=== PATIENT | female | born 2000 | race Caucasian/White ===

== ENCOUNTER 2021-05-15 16:01 | Inpatient (IN) ==
--- NOTE | 2021-05-15 16:36 | Emergency Department Note ---
History of Present Illness General Chief complaint: Ankle Pain Stated complaint: fracture Time Seen by Provider: 05/15/21 16:11 History of Present Illness Maximum Pain Intensity: 6 This is a 20-year-old female who presents via EMS with a right ankle injury that occurred prior to arrival. She was walking down steps in a parking garage and slipped on a wet step, fell forward injuring the right ankle. She received morphine for pain control in route. She has been unable to bear weight. Patient also endorses some left outer ankle pain, but not nearly as bad as the right ankle. Denies any prior injuries or surgeries to either ankles. States that she is not sexually active and no chance of . Denies any numbness or tingling in her feet. Did not hit her head when she fell. Denies any headache, loss of consciousness, neck pain, back pain, upper extremity pain, chest pain, abdominal pain, nausea, vomiting, pelvic pain. Home Medications Medication Instructions Recorded Confirmed Type ibuprofen 200 mg tablet (Advil) 400 mg PO Q6H PRN 05/15/21 05/15/21 History magnesium 500 mg tablet 500 mg PO DAILY 05/15/21 05/15/21 History norelgestromin 150 mcg-e.estradiol 1 patch TOPICAL WK 05/15/21 05/15/21 History 35 mcg/24 hr weekly transderm patch (Xulane) venlafaxine 150 mg 159 mg PO HS 05/15/21 05/15/21 History capsule,extended release 24 hr Allergies Allergy/AdvReac Type Severity Reaction Status Date / Time latex Allergy Rash Verified 05/15/21 19:38 DUST MITES Allergy SINUS Uncoded 05/15/21 19:38 CONGESTION Past Med/Surg History Medical History Chronic migraine Social History Smoking Status: Never smoker Feels Safe at Home: Yes Review of Systems Constitutional: no fever, no chills and no weakness Eyes: no diplopia Ear, Nose, Mouth, Throat: no loose teeth Respiratory: no dyspnea Cardiovascular: no chest pain Gastrointestinal: no abdominal pain, no nausea and no vomiting Musculoskeletal: + joint pain (right and left ), + deformity (right ankle), + swelling (both ankles) and + limited range of motion (right ankle); no back pain, no neck pain and no myalgia Integumentary: + wounds (right ankle); no change in skin color Neurologic: no loss of sensation, no tingling, no numbness and no syncope Hematologic / Lymphatic: no easy bleeding and no easy bruising Physical Exam Vital Signs Vital Signs - 24 hr 05/15/21 16:08 05/15/21 16:09 05/15/21 16:30 Temperature 98.6 F Temperature Source Oral Pulse Rate 102 H 108 H 97 H Pulse Rate from SpO2 Sensor 103 H 95 H Pulse Rhythm Regular Pulse Strength Normal Respiratory Rate 18 17 22 Respiratory Effort / Characteristics Non-Labored Spontaneous Respiratory Depth Normal Blood Pressure 154/95 H 172/110 H Blood Pressure Mean 114 130 Blood Pressure Position Lying Pulse Oximetry 97 99 97 Oxygen Delivery Method Room Air Sepsis Recent Fever Within 48 Hours No Sepsis New/Unexplained Change in Mental Status N/A Sepsis Action Taken by Nursing No Action Required 05/15/21 17:00 05/15/21 17:31 Temperature Temperature Source Pulse Rate 98 H 101 H Pulse Rate from SpO2 Sensor 97 H 102 H Pulse Rhythm Pulse Strength Respiratory Rate 12 16 Respiratory Effort / Characteristics Respiratory Depth Blood Pressure 164/105 H Blood Pressure Mean 124 Blood Pressure Position Pulse Oximetry 98 98 Oxygen Delivery Method Sepsis Recent Fever Within 48 Hours Sepsis New/Unexplained Change in Mental Status Sepsis Action Taken by Nursing CONSTITUTIONAL: Well developed, well nourished, laying flat on stretcher only in distress with movement of the right lower extremity. HEAD: Normocephalic, atraumatic. EYES: conjunctivae normal, extraocular muscles intact. EARS/NOSE/MOUTH/THROAT: External ears no injury, no drainage. Nose with no injury or epistaxis. NECK: No spinous process tenderness. Full active range of motion. RESPIRATORY: Breathing unlabored and symmetric. Lungs clear to auscultation bilaterally. CARDIOVASCULAR: Regular rate and rhythm. No murmurs, rubs, or gallops. DP pulses 2+ bilaterally. ABDOMEN: Normal bowel sounds. Soft, nontender. No masses or ecchymosis. No rigidity. MUSCULOSKELETAL: Moves bilateral upper extremities at all joints without pain or difficulty. Pelvis stable, nontender. Right lower extremity: No tenderness in upper leg, knee. Obvious deformity of the right ankle with external rotation, swelling and tenderness diffusely about the distal tibia/fibula/ankle. 1 cm laceration, possibly puncture wound present on the medial distal tibia. Foot appears to be well perfused is warm with no cyanosis. Midshaft fibular tenderness noted. No proximal fibular tenderness. No foot tenderness. Left lower extremity: No tenderness in upper leg, knee. Tenderness and swelling noted over lateral fibula. No foot tenderness. Back: No thoracic, lumbar, sacral midline tenderness noted. No step-off deformities. SKIN: [place], warm, dry. NEUROLOGIC: Alert and oriented x 3. GCS 15. Slight decrease sensation in right lateral foot to light sensation. PSYCHIATRIC: Appropriate. Normal affect. Course Reevaluation(s) Reevaluation #1: Spoke with Dr. Tapia (orthopedics) regarding the case and clinical and imaging findings. He will be down to see patient at bedside Administered Medications Hydromorphone HCl (Hydromorphone Inj 0.5 Mg/0.5 Ml Syr) 1 mg IV Q2H PRN PRN Reason: Pain Stop: 05/29/21 17:50 Last Admin: 05/15/21 18:47 Dose: 1 mg Documented by: [id number] Ondansetron HCl (Ondansetron Inj 2 Mg/Ml 2 Ml Vial) 4 mg IV Q6H PRN PRN Reason: Nausea/Vomiting Stop: 06/14/21 17:50 Last Admin: 05/15/21 18:47 Dose: 4 mg Documented by: [id number] Discontinued Medications Fentanyl Citrate (Fentanyl Citrate 100 Mcg/2 Ml Vial) 100 mcg IV NOW STA Stop: 05/15/21 17:25 Last Admin: 05/15/21 17:30 Dose: 100 mcg Documented by: [id number] Cefazolin Sodium (Ancef 2000mg) 2,000 mg in 15 mls @ 3.75 mls/min IV PREOP ONE Stop: 05/15/21 16:57 Last Admin: 05/15/21 17:43 Dose: 3.75 mls/min Documented by: [id number] Medical Decision Making Laboratory Data Result diagrams: 05/15/21 17:24 05/15/21 17:24 Lab Results 05/15/21 05/15/21 05/15/21 Range/Units 17:08 17:24 17:24 WBC 10.97 H (4.8-10.8) K/uL RBC 4.50 (4.2-5.4) M/uL Hgb 13.2 (12.0-16.0) g/dL Hct 40.5 (37-47) % MCV 90.0 (80-100) fL MCH 29.3 (25-34) pg MCHC 32.6 (32-36) g/dL RDW Std Deviation 44.4 (36.4-46.3) fL RDW Coeff of Karsten 13.5 (11.5-14.5) % Plt Count 267 (130-400) K/uL MPV 9.6 (7.4-10.4) fL Immature Gran % (Auto) 0.2 % Neut % (Auto) 78.0 % Lymph % (Auto) 16.9 % Alexander % (Auto) 4.3 % Eos % (Auto) 0.5 % Baso % (Auto) 0.1 % Neut # (Auto) 8.57 H (1.4-6.5) K/uL Lymph # (Auto) 1.85 (1.2-3.4) K/uL Alexander # (Auto) 0.47 (0.11-0.59) K/uL Eos # (Auto) 0.05 (0-0.5) K/uL Baso # (Auto) 0.01 (0-0.2) K/uL Immature Gran # (Auto) 0.02 (0.00-0.02) K/uL PT 10.2 (9.0-12.0) Seconds INR 1.0 (0.9-1.1) Sodium (136-145) mmol/L Potassium (3.5-5.1) mmol/L Chloride (98-107) mmol/L Carbon Dioxide (21-32) mmol/L Anion Gap (3-11) BUN (6-23) mg/dl Creatinine (0.6-1.2) mg/dl Est Cr Clr Drug Dosing ml/min Est GFR ( Amer) ml/min Est GFR (Non-Af Amer) ml/min BUN/Creatinine Ratio (10-20) Glucose (70-99(Fasting)) mg/dl Calcium (8.5-10.1) mg/dl Total Bilirubin (0.2-1.0) mg/dl AST (13-39) U/L ALT (7-52) U/L Alkaline Phosphatase (34-104) U/L Total Protein (6.0-8.3) gm/dl Albumin (3.4-5.0) gm/dl Globulin (2.5-4.0) gm/dl Albumin/Globulin Ratio (0.9-2) HCG, Qual (Negative) SARS-CoV-2, RNA, NAAT NEGATIVE (NEGATIVE) 05/15/21 05/15/21 Range/Units 17:24 17:24 WBC (4.8-10.8) K/uL RBC (4.2-5.4) M/uL Hgb (12.0-16.0) g/dL Hct (37-47) % MCV (80-100) fL MCH (25-34) pg MCHC (32-36) g/dL RDW Std Deviation (36.4-46.3) fL RDW Coeff of Karsten (11.5-14.5) % Plt Count (130-400) K/uL MPV (7.4-10.4) fL Immature Gran % (Auto) % Neut % (Auto) % Lymph % (Auto) % Alexander % (Auto) % Eos % (Auto) % Baso % (Auto) % Neut # (Auto) (1.4-6.5) K/uL Lymph # (Auto) (1.2-3.4) K/uL Alexander # (Auto) (0.11-0.59) K/uL Eos # (Auto) (0-0.5) K/uL Baso # (Auto) (0-0.2) K/uL Immature Gran # (Auto) (0.00-0.02) K/uL PT (9.0-12.0) Seconds INR (0.9-1.1) Sodium 137 (136-145) mmol/L Potassium 3.9 (3.5-5.1) mmol/L Chloride 106 (98-107) mmol/L Carbon Dioxide 24 (21-32) mmol/L Anion Gap 7 (3-11) BUN 6 (6-23) mg/dl Creatinine 0.59 L (0.6-1.2) mg/dl Est Cr Clr Drug Dosing 204.4 ml/min Est GFR ( Amer) > 150.0 ml/min Est GFR (Non-Af Amer) 132.9 ml/min BUN/Creatinine Ratio 10.2 (10-20) Glucose 90 (70-99(Fasting)) mg/dl Calcium 9.1 (8.5-10.1) mg/dl Total Bilirubin 0.3 (0.2-1.0) mg/dl AST 11 L (13-39) U/L ALT 8 (7-52) U/L Alkaline Phosphatase 69 (34-104) U/L Total Protein 7.0 (6.0-8.3) gm/dl Albumin 4.0 (3.4-5.0) gm/dl Globulin 3.0 (2.5-4.0) gm/dl Albumin/Globulin Ratio 1.3 (0.9-2) HCG, Qual Negative (Negative) SARS-CoV-2, RNA, NAAT (NEGATIVE) Imaging Data Radiologist's Impression: Ankle X-Ray 05/15/21 16:21 LEFT ANKLE 3 VIEWS CLINICAL HISTORY: Fall. Left ankle injury. FINDINGS: 3 views of the left ankle are obtained. No prior studies are available for comparison at the time of dictation. The skeletal structures are well mineralized. No fracture is seen. The ankle mortise is intact. No joint effusion is identified. Mild soft tissue edema is present around the ankle, greatest overlying the lateral malleolus. IMPRESSION: Soft tissue swelling with no fracture identified. Electronically signed by: Luis Antonio Guerra M.D. 05/15/2021 4:53 PM Ankle X-Ray 05/15/21 16:21 RIGHT TIBIA AND FIBULA 2 VIEWS; RIGHT ANKLE 2 VIEWS CLINICAL HISTORY: Fall with right leg injury. FINDINGS: Crosstable AP and lateral views of the right tibia and fibula with crosstable AP and lateral views the right ankle are obtained. No prior studies are available for comparison at the time of dictation. The skeletal structures are well mineralized. There is a comminuted and displaced spiral fracture of the distal fibular shaft. There is lateral displacement of the distal fragment by one shaft length, as well as 2 cm of overriding of the largest fragments. Additionally, there is a displaced spiral fracture of the distal tibial metadiaphysis. There is lateral displacement of the distal fragment by approximately 1 cm, as well as mild overriding of fragments. There is apex volar angulation of both fractures with surrounding soft tissue edema and foci of soft tissue gas. The ankle mortise appears intact. The proximal tibia and fibula are maintained. The knee joint is grossly preserved. IMPRESSION: Distal tibial and fibular fractures as detailed above. Foci of soft tissue gas suggest open fractures and clinical correlation will be required. Electronically signed by: Luis Antonio Guerra M.D. 05/15/2021 4:52 PM Tibia/Fibula X-Ray 05/15/21 16:21 RIGHT TIBIA AND FIBULA 2 VIEWS; RIGHT ANKLE 2 VIEWS CLINICAL HISTORY: Fall with right leg injury. FINDINGS: Crosstable AP and lateral views of the right tibia and fibula with crosstable AP and lateral views the right ankle are obtained. No prior studies are available for comparison at the time of dictation. The skeletal structures a re well mineralized. There is a comminuted and displaced spiral fracture of the distal fibular shaft. There is lateral displacement of the distal fragment by one shaft length, as well as 2 cm of overriding of the largest fragments. Additionally, there is a displaced spiral fracture of the distal tibial metadiaphysis. There is lateral displacement of the distal fragment by approximately 1 cm, as well as mild overriding of fragments. There is apex volar angulation of both fractures with surrounding soft tissue edema and foci of soft tissue gas. The ankle mortise appears intact. The proximal tibia and fibula are maintained. The knee joint is grossly preserved. IMPRESSION: Distal tibial and fibular fractures as detailed above. Foci of soft tissue gas suggest open fractures and clinical correlation will be required. Electronically signed by: Luis Antonio Guerra M.D. 05/15/2021 4:52 PM MDM Narrative 20-year-old female presents with an obvious injury to the right lower leg/ankle secondary to a slip and fall walking down stairs. Swelling and deformity noted in this area, likely an open fracture with a small 1 cm laceration in the distal tibial region. Only additional injury identified on full examination is left lateral malleoli or tenderness. Pulses are intact, no cyanosis, warm to touch. Patient notes decreased sensation in the lateral foot when testing sensation bilaterally. X-rays obtained of the right lower extremity/ankle and left ankle. Comminuted displaced fractures of the distal tibia and fibula on the right, gas was visualized confirming suspicion for open fracture. Left ankle is no fracture although soft tissue swelling is noted, likely a sprain. Orthopedics was consulted and evaluated patient at bedside. Reduction was performed after fentanyl was administered, splint was applied by orthopedics. Plan is to admit the patient overnight and repair the fracture tomorrow. CT pending at time of admission post reduction. Screening labs unremarkable. Impression & Plan Type I or II open fracture of distal end of right fibula and tibia, Left ankle sprain, Fall down stairs See above Discharge Plan Visit Data Chief Complaint: Ankle Pain Stated Complaint: fracture ED Provider: Shamar Hernandez ED Midlevel Provider: Angel Hall Discharge Problem: Type I or II open fracture of distal end of right fibula and tibia, Left ankle sprain, Fall down stairs Patient Disposition: Admitted As Inpatient Condition: Good Forms Stand Alone Forms: [employer] Prescriptions Prescriptions: No Action magnesium 500 mg Tablet 500 mg PO DAILY RF: 0 venlafaxine 150 mg capsule,extended release 24hr 159 mg PO HS RF: 0 ibuprofen [Advil] 200 mg Tablet 400 mg PO Q6H PRN (Reason: Pain) RF: 0 Xulane 150-35 mcg/24 hr patch weekly 1 patch topical WK RF: 0 Referrals Referrals: [facility] [Primary Care Provider] - Discharge Problem: Type I or II open fracture of distal end of right fibula and tibia Qualifiers: Encounter type: initial encounter Qualified Code(s): S82.301B - Unspecified fracture of lower end of right tibia, initial encounter for open fracture type I or II Left ankle sprain Qualifiers: Encounter type: initial encounter Involved ligament of ankle: unspecified ligament Qualified Code(s): S93.402A - Sprain of unspecified ligament of left ankle, initial encounter Fall down stairs Qualifiers: Encounter type: initial encounter Qualified Code(s): W10.8XXA - Fall (on) (from) other stairs and steps, initial encounter
[2021-05-15] MEDS ORDERED: ceFAZolin 2000MG 2,000 MG/15 ML SYR IV ONE (16:54)
--- NOTE | 2021-05-15 16:54 | XRay Report ---
RIGHT TIBIA AND FIBULA 2 VIEWS; RIGHT ANKLE 2 VIEWS CLINICAL HISTORY: Fall with right leg injury. FINDINGS: Crosstable AP and lateral views of the right tibia and fibula with crosstable AP and latera l views the right ankle are obtained. No prior studies are available for comparison at the time of di ctation. The skeletal structures are well mineralized. There is a comminuted and displaced spiral fra cture of the distal fibular shaft. There is lateral displacement of the distal fragment by one shaft length, as well as 2 cm of overriding of the largest fragments. Additionally, there is a displaced sp iral fracture of the distal tibial metadiaphysis. There is lateral displacement of the distal fragmen t by approximately 1 cm, as well as mild overriding of fragments. There is apex volar angulation of b oth fractures with surrounding soft tissue edema and foci of soft tissue gas. The ankle mortise appea rs intact. The proximal tibia and fibula are maintained. The knee joint is grossly preserved. IMPRESSION: Distal tibial and fibular fractures as detailed above. Foci of soft tissue gas suggest op en fractures and clinical correlation will be required. Electronically signed by: Luis Antonio Guerra M.D. 05/15/2021 4:52 PM
--- NOTE | 2021-05-15 16:55 | XRay Report ---
LEFT ANKLE 3 VIEWS CLINICAL HISTORY: Fall. Left ankle injury. FINDINGS: 3 views of the left ankle are obtained. No prior studies are available for comparison at th e time of dictation. The skeletal structures are well mineralized. No fracture is seen. The ankle mor tise is intact. No joint effusion is identified. Mild soft tissue edema is present around the ankle, greatest overlying the lateral malleolus. IMPRESSION: Soft tissue swelling with no fracture identified. Electronically signed by: Luis Antonio Guerra M.D. 05/15/2021 4:53 PM
[2021-05-15] MEDS ORDERED: fentaNYL citrate 100 MCG/2 ML VIAL IV STA (17:24)
[2021-05-15 17:33] LABS: Basophils # (auto) 0.01 K/uL (0-0.2); Basophils % (auto) 0.1 %; Eosinophils # (auto) 0.05 K/uL (0-0.5); Eosinophils % (auto) 0.5 %; Hematocrit (blood only) 40.5 % (37-47); Hemoglobin 13.2 g/dL (12.0-16.0); Immature Granulocytes # (auto) 0.02 K/uL (0.00-0.02); Immature Granulocytes % (auto) 0.2 %; Lymphocytes # (auto) 1.85 K/uL (1.2-3.4); Lymphocytes % (auto) 16.9 %; Mean Corpuscular Hemoglobin 29.3 pg (25-34); Mean Corpuscular Hgb Conc 32.6 g/dL (32-36); Mean Platelet Volume 9.6 fL (7.4-10.4); Monocytes # (auto) 0.47 K/uL (0.11-0.59); Monocytes % (auto) 4.3 %; Neutrophils # (auto) 8.57 K/uL (1.4-6.5); Platelet Count 267 K/uL (130-400); RDW Coefficient of Variation 13.5 % (11.5-14.5); RDW Standard Deviation 44.4 fL (36.4-46.3); White Blood Count 10.97 K/uL (4.8-10.8)
[2021-05-15 17:47] LABS: Prothrombin Time 10.2 Seconds (9.0-12.0)
--- NOTE | 2021-05-15 17:47 | Emergency Department Note ---
ED Visit Note Patient was seen in conjunction with the physician sociology research assistant, please see his note for full details. In brief, patient presented to the emergency department with a deformity to her right ankle after a fall down some stairs today. She does have a small open wound to the medial aspect of the ankle. X-ray imaging confirms distal tibia and fibula fractures with some lateral displacement, ankle mortise appears intact. IV was established, lab work obtained, patient was started on IV antibiotics, orthopedic service was consulted and patient was evaluated by Dr. Tapia at the bedside and reduction was performed with splinting. Plan will be for admission with operative intervention tomorrow morning. Patient is in agreement to the above plan, on my reassessment she is in a splint and does have motor function intact distally in the digits of the right foot. She was admitted in stable condition for definitive care. I agree with the assessment/plan of the midlevel provider, Angel Hall PA-C .
[2021-05-15] MEDS ORDERED: ONDANSETRON INJ 2 MG/ML 2 ML VIAL IV PRN (17:51)
[2021-05-15 17:57] LABS: Alanine Aminotransferase 8 U/L (7-52); Albumin Globulin Ratio 1.3 (0.9-2); Alkaline Phosphatase 69 U/L (34-104); Anion Gap 7 (3-11); Aspartate Aminotransferase 11 U/L (13-39); BUN Creatinine Ratio 10.2 (10-20); Bilirubin,Total 0.3 mg/dl (0.2-1.0); Blood Urea Nitrogen 6 mg/dl (6-23); Calcium 9.1 mg/dl (8.5-10.1); Carbon Dioxide 24 mmol/L (21-32); Chloride 106 mmol/L (98-107); Creatinine Clr Calc Pharmacy 204.4 ml/min; Est GFR (African American) > 150.0 ml/min; Est GFR (Non-African American) 132.9 ml/min; Glucose 90 mg/dl (70-99(Fasting)); Potassium 3.9 mmol/L (3.5-5.1); Pregnancy Test, Serum Negative (Negative); Sodium 137 mmol/L (136-145)
--- NOTE | 2021-05-15 18:00 | History & Physical Report ---
Date of Service May 15, 2021 Assessment & Plan (1) Type I or II open fracture of distal end of right fibula and tibia: I discussed the diagnosis with her at bedside. I also called her mother and discussed it with her. I recommended open reduction internal fixation of her right distal tibia. She understands the risk, benefits, and alternatives to procedure elected proceed. Questions were answered at bedside. Time was spent scribed procedure and post expectations. We will keep her on Ancef for now because of the puncture wound. We will obtain a CAT scan of her right ankle. She will be kept n.p.o. after midnight tonight. We will hope to fix the fracture tomorrow. History of Present Illness Chief Complaint: Right distal tibia fracture. Primary Care Provider: [facility] Eloisa is a pleasant 20-year-old female who is a [id number] student. She slipped and fell down a few stairs twisting her right ankle. She had immediate right ankle pain. She came to the emergency room and radiographs demonstrated a displaced right distal tibia and fibula fracture. There is a very small puncture wound. She was given Ancef in the emergency room. Orthopedics was contacted. Her right ankle fracture was reduced. After discussions at bedside, she elected to stay overnight for open reduction internal fixation of her right ankle the following day. Past Med/Surg History Social History Smoking Status: Never smoker Feels Safe at Home: Yes Review of Systems All systems reviewed & are unremarkable except as noted in HPI & below. Physical Exam On physical examination of the right ankle, there is a very small puncture wound on the anterior distal tibia. There is a small amount of bleeding from it. A very small wound. There is no gross contamination. She has active motion of her toes. There is gross deformity of her right ankle with significant external rotation. Constitutional WD/WN, vitals as above Eyes PERRL, conjunctivae normal, anicteric sclerae ENMT external ear and nose normal, oropharynx normal Neck trachea midline, no thyromegaly Respiratory normal respiratory effort Cardiovascular RRR, no murmur, no edema Gastrointestinal (Abdomen) normal bowel sounds, soft, nontender, no hepatosplenomegaly Psychiatric A+Ox3, euthymic affect Results & Data Results & Data Laboratory Results . Diagnostic Findings X-rays of the right ankle show a displaced right distal tibia fracture and a transverse distal fibula fracture PG Care Time/CCT Total # of Minutes Spent Total Time Spent with Patient: Total time spent is greater than 50% in coordination of care (as documented) at patient's floor/unit and/or counseling patient: Coding Level of Care Code 24198 Initial Inpt Care Lvl 2 (57 - DECISION FOR SURGERY) Diagnoses Type I or II open fracture of distal end of right fibula and tibia S82.301B; S82.831B
[2021-05-15] MEDS: HYDROmorphone INJ 0.5 MG/0.5 ML SYR IV PRN ×2 (18:47→21:28)
--- NOTE | 2021-05-15 19:47 | CT Scan Report ---
CT SCAN OF THE RIGHT TIBIA AND FIBULA WITHOUT IV CONTRAST CLINICAL HISTORY: Tibial and fibular fractures. Preoperative examination. COMPARISON STUDY: Radiographs of the right tibia and fibula dated 05/15/2021. TECHNIQUE: CT scan of the right tibia and fibula is performed from the knee to the ankle. Images are reviewed in the axial, sagittal, and coronal planes. IV contrast was not administered for this examin ation. A dose lowering technique was utilized adhering to the principles of ALARA. CT DOSE: 312.72 mGy.cm FINDINGS: The skeletal structures are well mineralized. There is a comminuted and displaced spiral fr acture of the distal fibular shaft with small displaced fragments. There is medial displacement of th e distal fibular shaft by one shaft length, as well as overriding of the fragments by at least 1.5 cm . There is a displaced spiral fracture of the distal tibial metadiaphysis. There is lateral displacem ent of the distal tibial fragment by at least 8 mm. There is also mild overriding of fragments. Fract ure extends through the posterior tibial plafond to the articular surface, best seen on axial image # 665. There is likely an impaction type fracture along the lateral aspect of the tibia at the articula r surface, best seen on coronal image #37. Anatomic alignment is maintained at the ankle mortise. Hem orrhage is identified around the fracture fragments. There are numerous foci of soft tissue gas aroun d the fracture site suggesting an open fracture. No organized hematoma is identified. The proximal ti macho and fibula are intact. No talar fracture is identified. The Achilles tendon is intact as visualiz ed. The regional musculature is normal as imaged. IMPRESSION: 1. Distal tibial and fibular fractures as above. 2. Fracture extends posteriorly through the posterior tibial plafond to the articular surface. 3. Soft tissue gas around the fracture site suggests open fracture. Clinical correlation will be requ ired. ACT 112: Negative or not required by law. Dictated: 05/15/2021 7:28 PM Transcribed: 05/15/2021 7:42 PM Demi [id number] [email or web address] Electronically signed by: Luis Antonio Guerra M.D. 05/15/2021 7:46 PM
[2021-05-15] MEDS ORDERED: VENLAFAXINE HCL XR 150 MG CAPXR PO SCH (21:00)
[2021-05-15] MEDS: ceFAZolin 1000MG 1,000 MG/7.5 ML SYR IV SCH (21:03)
[2021-05-15] MEDS: SODIUM CHLORIDE 0.9% 1000ML 1,000 ML IV SCH (21:19)
[2021-05-16] MEDS: HYDROmorphone INJ 0.5 MG/0.5 ML SYR IV PRN ×3 (01:28→10:19)
[2021-05-16] MEDS: ceFAZolin 1000MG 1,000 MG/7.5 ML SYR IV SCH ×3 (05:12→21:26)
[2021-05-16] MEDS ORDERED: ceFAZolin 2000MG 2,000 MG/15 ML SYR IV SCH ×2 (06:00→20:00)
[2021-05-16] MEDS: SODIUM CHLORIDE 0.9% 1000ML 1,000 ML IV SCH ×2 (07:26→15:03)
[2021-05-16] MEDS ORDERED: PROPOFOL IV EMULSION 10 MG/ML 20 ML VIAL IV ONE (09:21)
[2021-05-16] MEDS ORDERED: MIDAZOLAM HCL 1 MG/ML 2ML VIAL ONE (09:21)
[2021-05-16] MEDS ORDERED: DEXAMETHASONE SOD INJ 4 MG/ML VIAL ONE (09:21)
[2021-05-16] MEDS ORDERED: ONDANSETRON INJ 2 MG/ML 2 ML VIAL ONE ×2 (09:21→13:35)
[2021-05-16] MEDS ORDERED: fentaNYL citrate 100 MCG/2 ML VIAL ONE ×2 (09:21→12:01)
--- NOTE | 2021-05-16 10:20 | History & Physical Bridge Note ---
Date of Service May 16, 2021 History & Physical Bridge Note I have examined the patient, reviewed the History & Physical and in the interval since the performance of the History & Physical I have noted the following changes of clinical significance: no changes noted
[2021-05-16] MEDS ORDERED: HYDROmorphone INJ 2 MG/ML SYR/VIAL IV PRN (10:44)
[2021-05-16] MEDS ORDERED: ATROPINE SULFATE 0.1 MG/ML 10ML SYR IV PRN (10:44)
[2021-05-16] MEDS ORDERED: ONDANSETRON INJ 2 MG/ML 2 ML VIAL IV PRN ×2 (10:44→14:16)
[2021-05-16] MEDS ORDERED: ePHEDrine sulfate 50 MG/ML AMP IV PRN (10:44)
[2021-05-16] MEDS ORDERED: fentaNYL citrate 100 MCG/2 ML VIAL IV PRN (10:44)
[2021-05-16] MEDS ORDERED: BUPIVACAINE 0.5 % 5 MG/1 ML PF 10ML VIAL ONE (10:56)
--- NOTE | 2021-05-16 10:57 | Anesthesiology Consultation ---
Date of Service May 16, 2021 Assessment & Plan ASA ASA2 Proposed Anesthesia Anesthesia Type: General Regional Regional Laterality: Right Site: Adductor Canal Risk / Benefits Reviewed With: PT / POA / Parent / Guardian, Accepts Plan and Informed Consent Obtained History Surgery Operation Date: 05/16/21 10:05 Proposed Procedures p Right Distal Tibia Open Reduction Internal Fixation - Chung Man MD Height/Weight Height: 5 ft 10 in Weight: 107 kg Allergies Allergy/AdvReac Type Severity Reaction Status Date / Time latex Allergy Rash Verified 05/15/21 19:38 DUST MITES Allergy SINUS Uncoded 05/15/21 19:38 CONGESTION Medications Home Medications Medication Instructions Recorded Confirmed Last Taken ibuprofen 200 mg tablet (Advil) 400 mg PO Q6H PRN 05/15/21 05/15/21 Unknown magnesium 500 mg tablet 500 mg PO DAILY 05/15/21 05/15/21 Unknown norelgestromin 150 mcg-e.estradiol 1 patch TOPICAL WK 05/15/21 05/15/21 05/14/21 35 mcg/24 hr weekly transderm patch (Xulane) venlafaxine 150 mg 150 mg PO HS 05/15/21 05/15/21 Unknown capsule,extended release 24 hr Active Medications Generic Name Dose Route Start Last Admin Trade Name Freq PRN Reason Stop Dose Admin Hydromorphone HCl 1 mg 05/15/21 17:51 05/16/21 10:19 Hydromorphone Inj 0.5 Mg/0.5 Ml Syr IV 05/29/21 17:50 1 mg Q2H PRN Administration Pain Sodium Chloride 1,000 mls @ 80 mls/hr 05/15/21 18:00 05/16/21 07:26 Nss 1000ml IV 06/14/21 17:59 80 mls/hr .[id number] CHRISTY Administration Cefazolin Sodium 1,000 mg in 7.5 mls @ 2.5 mls/min 05/15/21 21:00 05/16/21 05:12 Ancef 1000mg IV 06/26/21 20:59 2.5 mls/min Q8H CHRISTY Administration Ondansetron HCl 4 mg 05/15/21 17:51 05/15/21 18:47 Ondansetron Inj 2 Mg/Ml 2 Ml Vial IV 06/14/21 17:50 4 mg Q6H PRN Administration Nausea/Vomiting NPO Date Last Intake of Fluids: 05/15/21 Time Last Intake of Fluids: 23:30 Last Intake of Fluids Comment: sips of water Date Last Intake of Solids: 05/15/21 Time Last Intake of Solids: 21:00 Past Medical History Medical History Chronic migraine Exercise / Class Metabolic Activity II 4-5 Yardwork/Stairs/Walk up hill Past Anesthesia History No Hx of Anesthesia Complications and No Family Hx of Anesthesia Complications History of PONV No Hx of PONV and No Hx of Motion Sickness Social History Smoking Status: Never smoker Hx Alcohol Use: No Hx Substance Use: No substance use type: does not use Review of Systems denies fever/cough/ colds/ chest pain/ SOB/ JAVIER denies JAVIER Physical Exam Vital Signs Last Vital Signs Temp 37 C 05/16/21 10:35 Pulse 102 H 05/16/21 10:35 Resp 20 05/16/21 10:35 BP 166/105 H 05/16/21 10:35 Pulse Ox 94 05/16/21 10:35 ENMT Mouth: no TMJ abnormality and no dentition abnormality Thyromental Distance: > or= 3.5 Finger Breadths Mallampati Class: II Neck neck extension not limited Respiratory normal respiratory effort; no respiratory distress Auscultation: lungs clear to auscultation bilaterally Cardiovascular Rate/Rhythm: regular rate and regular rhythm Neurologic moves all extremities Psychiatric Orientation: alert and oriented x 3 Testing Laboratory Results 05/15/21 17:24 05/15/21 17:24 PT 10.2 Seconds (9.0-12.0) 05/15/21 17:24 INR 1.0 (0.9-1.1) 05/15/21 17:24
[2021-05-16] MEDS ORDERED: EPINEPHrine INJ 1 MG/ML AMP ONE (11:02)
[2021-05-16] MEDS ORDERED: BUPIVACAINE 0.5 % 5 MG/1 ML MPF 30ML VIAL ONE (11:03)
[2021-05-16] MEDS ORDERED: PHENYLEPHRINE 100MCG/ML 5ML SYR ONE (12:05)
[2021-05-16] MEDS ORDERED: ceFAZolin 330 MG/ML 1 GM VIAL ONE ×2 (12:20→12:29)
[2021-05-16] MEDS ORDERED: HYDROmorphone INJ 2 MG/ML SYR/VIAL ONE (13:17)
--- NOTE | 2021-05-16 13:46 | Post Operative Brief Note ---
PG Immediate Post Op with CF Date of Surgery May 16, 2021 Pre & Post Diagnosis Operation Date: 05/16/21 10:05 Pre-Op Diagnosis: Open Right Distal Tibia/Fibula Fracture Post-Op Diagnosis: Open Right Distal Tibia/Fibula Fracture I identified the patient and participated in the time-out.: Yes Procedure Operation Date: 05/16/21 10:05 Actual Procedures p Right Distal Tibia Irrigation and Debridement and Open Reduction Internal Fixation(Right) - Chung Man MD Surgeon Chung Man MD [employer] Machine Operator COREEN Menezes Estimated Blood Loss 30 Findings Consistent with Post-Op Diagnosis Specimens Specimen Description: none per surgeon Anesthesia Type General Complications none Disposition Accompanied Patient To Recovery: No
[2021-05-16] MEDS ORDERED: ESMOLOL HCL INJ 10 MG/ML 10ML VIAL IV ONE (13:58)
--- NOTE | 2021-05-16 14:07 | Fluoroscopy Report ---
FL ankle RT min 3V RTN CLINICAL HISTORY: RT ORIF DISTAL TIBIA COMPARISON STUDY: Right lower leg 05/15/2021. FLUOROSCOPY TIME: 19 seconds. FINDINGS: 6 fluoroscopic spot images of the right ankle demonstrate a cortical plate and screws trans fixing the distal tibial fracture. The distal tibial fracture demonstrates improved anatomic alignmen t. The hardware appears intact. IMPRESSION: Fluoroscopic assistance provided for internal fixation of the right tibial and fibular fr actures ACT 112: Negative or not required by law. Electronically signed by: Erik Oleary M.D. 05/16/2021 2:06 PM
[2021-05-16] MEDS ORDERED: NALOXONE HCL 0.4 MG/1 ML VIAL/CARP IV PRN (14:16)
[2021-05-16] MEDS ORDERED: HYDROmorphone INJ 0.5 MG/0.5 ML SYR IV PRN (14:16)
[2021-05-16] MEDS ORDERED: ALUMINUM/MAGNESIUM SUSP 30 ML UDC PO PRN (14:16)
[2021-05-16] MEDS ORDERED: METOCLOPRAMIDE HCL INJ 5 MG/ML 2 ML VIAL IV PRN (14:16)
[2021-05-16] MEDS ORDERED: bisacodyL 10 MG SUPP PR PRN (14:16)
[2021-05-16] MEDS ORDERED: diphenhydrAMINE Capsule 25 MG CAP PO PRN (14:16)
[2021-05-16] MEDS ORDERED: MAGNESIUM HYDROXIDE SUSP 30 ML UDC PO PRN (14:16)
--- NOTE | 2021-05-16 14:57 | Anesthesiology Progress Note ---
Date of Service May 16, 2021 Anesthesia Post Procedure Vital Signs Vital Signs: Temp Pulse Pulse Resp BP BP Pulse Ox 05/16/21 14:45 37.0 C 112 H 18 149/89 H 98 05/16/21 14:30 115 H 20 113/75 93 05/16/21 14:20 119 H 22 145/79 H 95 05/16/21 14:10 124 H 20 142/78 H 96 05/16/21 14:02 36.4 C L 123 H 18 137/82 97 05/16/21 10:35 37 C 102 H 20 166/105 H 94 05/16/21 07:28 36.9 C 100 H 18 124/97 94 05/15/21 23:20 37.0 C 99 H 17 145/90 H 95 05/15/21 20:03 36.9 C 85 18 139/84 95 05/15/21 20:00 37 C 106 H 20 148/103 H 93 05/15/21 17:31 101 H 16 98 05/15/21 17:00 98 H 12 164/105 H 98 05/15/21 16:30 97 H 22 172/110 H 97 05/15/21 16:09 37.0 C 108 H 17 154/95 H 99 05/15/21 16:08 102 H 18 97 Pain Intensity Right Ankle: Pain Intensity: 5 Transfer of Care Handoff Completed per policy Notes Mental Status: alert / awake / arousable and participated in evaluation Patient Amnestic to Procedure: Yes Nausea / Vomiting: adequately controlled Pain: adequately controlled Airway Patency, RR, SpO2: stable & adequate BP & HR: stable & adequate Hydration State: stable & adequate Anesthetic Complications: no major complications apparent and Pt Satisfied with anesthetic care
[2021-05-16] MEDS: ACETAMINOPHEN 500 MG TAB PO SCH ×2 (15:03→21:22)
[2021-05-16] MEDS: KETOROLAC 30 MG/ML VIAL IV SCH ×2 (15:04→21:26)
[2021-05-16] MEDS: oxyCODONE HCL IR 5 MG TAB (IMMEDIATE RELEASE) PO PRN (18:33)
[2021-05-16] MEDS ORDERED: SENNA 8.6 MG TAB PO SCH (21:00)
[2021-05-16] MEDS ORDERED: VENLAFAXINE HCL XR 150 MG CAPXR PO SCH ×2 (21:00)
[2021-05-16] MEDS: DOCUSATE SODIUM 100 MG CAP PO SCH (21:22)
[2021-05-17] MEDS: oxyCODONE HCL IR 5 MG TAB (IMMEDIATE RELEASE) PO PRN ×2 (00:46→10:55)
[2021-05-17] MEDS: SODIUM CHLORIDE 0.9% 1000ML 1,000 ML IV SCH (01:13)
[2021-05-17] MEDS: KETOROLAC 30 MG/ML VIAL IV SCH ×2 (03:32→08:16)
[2021-05-17] MEDS: ACETAMINOPHEN 500 MG TAB PO SCH ×2 (05:30→13:31)
[2021-05-17] MEDS: ceFAZolin 1000MG 1,000 MG/7.5 ML SYR IV SCH ×2 (05:31→14:20)
[2021-05-17] MEDS: DOCUSATE SODIUM 100 MG CAP PO SCH (08:17)
[2021-05-17] MEDS ORDERED: MAGNESIUM OXIDE 400 MG TAB PO SCH ×2 (09:00→21:00)
[2021-05-17] MEDS ORDERED: MULTIVITAMIN TAB PO SCH (09:00)
[2021-05-17] MEDS ORDERED: Nursing to Pharmacy Communication SCH (09:45)
--- NOTE | 2021-05-17 13:52 | Progress Notes ---
DATE OF SERVICE: 05/17/2021. SUBJECTIVE: A 20-year-old female, now postoperative day 1 from I and D and ORIF of a right grade I o pen tibia fracture. She is doing pretty well. Pain is controlled. No chest pain or shortness of br eath. Not feeling dizzy or lightheaded. OBJECTIVE: VITAL SIGNS: Temperature 37.1. Vital signs are stable. PHYSICAL EXAMINATION: GENERAL: Shows a pleasant adolescent female. She is sitting up in bed and looks entirely comfortabl e. LUNGS: Clear to auscultation. HEART: Has a regular rate and rhythm. ABDOMEN: Soft, nontender, nondistended. EXTREMITIES: Grossly neurovascularly intact except as follows: Examination of the right leg reveals the splint to be clean, dry and intact. There are no signs of drainage. She can flex and extend he r toes appropriately. No signs of compartment issues. She has got brisk refill. ASSESSMENT: A 20-year-old female postoperative day 1 from incision and drainage and open reduction a nd internal fixation of a right grade I open distal tibiofibular fracture, doing well. Pain is contr olled. PLAN: 1. DVT prophylaxis includes thigh-high TEDs, SCDs, and aspirin. 2. PT/OT. She is nonweightbearing on the right leg for 6 weeks. 3. Pain control, doing okay with current pain regimen. 4. Wound care. We are going to leave the splint on for 2 weeks. I will see her back in 2 weeks lik ray for suture removal. 5. Disposition: Plan to discharge to home. Her mom is assisting in her care currently. Job ID: [id number]
--- NOTE | 2021-05-17 14:14 | Operative Report ---
PG Post Operative Report Pre & Post Diagnosis Operation Date: 05/16/21 10:05 Pre-Op Diagnosis: Grade 1 open Right Distal Tibia/Fibula Fracture Post-Op Diagnosis: Grade 1 open Right Distal Tibia/Fibula Fracture I identified the patient and participated in the time-out.: Yes Procedure Operation Date: 05/16/21 10:05 Actual Procedures p irrigation and debridement of right grade 1 open distal tib-fib fracture with right Distal Tibia Open Reduction Internal Fixation(Right) - Chung Man MD Surgeon Chung Man MD Silverware Etcher COREEN Menezes Estimated Blood Loss 30 Findings Consistent with Post-Op Diagnosis Specimens None Anesthesia Type General Complications none Disposition Accompanied Patient To Recovery: No Indications Patient is a 20-year-old female who sustained a fall 1 day prior to surgery. She apparently fell on some steps. Acute onset of pain and was unable to ambulate. Taken to the emergency room and admitted admitted with a displaced distal tib-fib fracture. There was have just a very slight puncture wound distally. She was placed on antibiotics and indicated for surgical repair along with irrigation debridement. Description of Procedure Operative implants consist of: 1. Synthes right anterior lateral distal tibial locking plate. 2. 3.5 fully threaded cortical locking screws x9. 3. 4.0 fully threaded cancellous screw x1. 3. 3.5 fully threaded cortical screws x3. Patient was taken the operating, identified, placed on the operating table supine position protectors were properly padded. IV antibiotics tried by anesthesia team. A general anesthetic was implemented. A right thigh tent was then placed. The right lower extremity splint was then removed. We scrubbed her leg extensively with Hibiclens and then prepped with ChloraPrep and draped draped her right leg in a typical sterile fashion. The right leg was elevated same with use of an Esmarch in terms playset 300 mmHg. An anterior lateral approach to the distal tibia was then performed through a curvilinear incision beginning approximately about a centimeter lateral to the anterior crest of the tibia extending distally over the extensor retinaculum and then medially and just medial to the tibialis anterior tendon. Sharp dialysis got through subcutaneous tissue down to the fascia. The fascia was incised longitudinally in line with skin incision just lateral to the anterior crest of the tibia. Great care was taken to avoid the strip of the bone to any significant degree. The fracture site was easily visualized. Expose this very carefully. We debrided it. I extensively irrigated the fracture site and debrided the bone edges. Once this was complete we changed gloves. I irrigated the wound again. I then reduced the fracture and held it in a reduced position with reduction clamps. Then placed two 3.5 fully threaded cortical screws across the fracture site in a lag fashion. An anterior lateral Synthes plate was then selected. We affixed this distally with a single 4.0 fully threaded cancellous screw to snug to the bone and then proximally with a single 3.5 cortical screw. Position of the plate and fracture reduction was verified fluoroscopically. We then placed additional locking screws both distally and proximally. Some final x-rays were obtained. The fracture was anatomically aligned. It was stable. Attention drawn toward closing. The wound was irrigated scope soft normal saline. We did inject locally with 30 cc of half percent Marcaine with epinephrine. I irrigated the wound extensively. The fascia/extensor retinaculum distally was repaired with 0 Vicryl suture in a [id number] fashion. I did not repair the anterior compartment fascia in order to allow for some swelling in the muscle. The tourniquet was let down for turn time 60 minutes. Hemostasis surgeons electrocautery. We once again irrigated the wound. Subcutaneous tissue was then closed with 3-0 Dexon suture in a buried knot fashion skin was closed with 3-0 nylon suture in a simple fashion. The leg was then cleaned and dried a sterile dressing was Xeroform, 4 x 4's, sterile cast padding and a well-padded posterior and stirrup splint were applied. The patient then brought out of general incision transferred to the recovery room in stable condition. Patient tolerated procedure well no complications. Pablo Menezes, my physician medical assistant float, was present for the entire procedure. His assistance was required for proper patient positioning, prepping and draping, surgical exposure, retraction, reduction of the fracture, placement of hardware, closure of the wound and, and placement of the sterile bandage. I attest to the content of the Intraoperative Record and any orders documented therein. Any exceptions are noted below.
== END 2021-05-17 16:12 | disposition home or self-care (01) | DRG 494 ==
LOC: ED 16:01 → 3W 17:51